=== PATIENT | female | born 1955 | race Caucasian/White ===

== ENCOUNTER 2017-10-25 08:00 | Outpatient (RCR) | payer BC, OTHER, SELFPAY ==
--- NOTE | 2017-09-25 09:26 | HMH.PTOPEV ---
Rehab Outpatient Evaluation Rehab OP Evaluation Start: 09/22/17 15:29 Freq: Status: Active Protocol: Document 09/22/17 15:00 FELICITA (Rec: 09/25/17 09:25 FELICITA [id number]) Electronically Signed By Harrison Oliver, PT 09/22/17 15:00 Outpatient Therapy Subjective History Subjective History Pt reports insidious onset acute L knee pain, with s/s starting on 09/09/17. Pt reports L knee 'popping', and pain, with referred pain from L lateral thigh to L lateral calf. Chief Complaint Pain Symptom Type Ache Sharp Dull Symptoms Relieved By Rest/Positioning Ice Symptoms Aggravated By Standing Physical Activity Walking Prior Functional Limitations Housework Standing Walking Stairs Current Functional Limitations Housework Standing Walking Stairs Level of pain today (0-10) 8 Pain scale - at its best (0-10) 8 Pain scale - at its worst (0-10) 10 Hip/Knee Eval Gait Observation General Gait Pattern Observation Antalgic Gait Assistive Device Assistive Devices None / NA Palpation Tenderness right Knee Palpation Finding Tenderness Knee Palpation Overall Comment globally 2-3/4 left Knee Palpation Finding Tenderness Knee Palpation Overall Comment 3/4 medial and lateral jt line , popiteal space MMT right Hip Flexion Strength Grade 4- Good- Hip Abduction Strength Grade 4- Good- Hip Adduction Strength Grade 4- Good- Hip Extension Strength Grade 4 Good Hip External Rotation Strength Grade 4 Good Hip Internal Rotation Strength Grade 4 Good Knee Extension Strength Grade 4 Good Knee Flexion Strength Grade 4 Good left Hip Flexion Strength Grade 4- Good- Hip Abduction Strength Grade 4- Good- Hip Adduction Strength Grade 4- Good- Hip Extension Strength Grade 4- Good- Hip External Rotation Strength Grade 3+ Fair+ Hip Internal Rotation Strength Grade 3+ Fair+ Knee Extension Strength Grade 4- Good- Knee Flexion Strength Grade 4- Good- ROM right Knee Extension Active Range of Motion ( 0 degrees) Knee Flexion Active Range of Motion ( 117 degrees) left
--- NOTE | 2017-10-13 08:16 | HMH.RHREAS ---
Rehab Reassessment Rehab OP Re-assessment Start: 10/13/17 08:01 Freq: Status: Active Protocol: Document 10/13/17 08:08 FELICITA (Rec: 10/13/17 08:15 FELICITA [id number]) Electronically Signed By Harrison Oliver, PT 10/13/17 08:08 Rehab Re-assessment Subjective Subjective Pt reports improved L knee pain @ 2/10 on VAS, and feels 75-80% better since I Eval. Objective Objective Notes MMT: L KNEE FLX 4+/5, L KNEE EXT 4+/5, L HIP FLX 4+/5, L HIP ABD,ADD,EXT 4-/5 TTP: L KNEE LAT JT LINE 2/4 ROM: L KNEE FLX 0-117 CIRCUM. L KNEE JT LINE 55CM Assessment Progress Assessment Progressing as Expected Assessment Notes PT WITH IMPROVED ROM, TTP, AND STRENGTH Patient goals met STG'S 03/10 LTG'S 09/11 Goals Not Met LTG'S 03/11 Plan Plan Pt to cont. w/ skilled PT to make further improvements with ROM, strength, TTP, and gait to allow for optimal function Frequency of Therapy 1-2x/wk Duration of therapy 3-4 wks Time and Billing Re-Eval Time 15 Re-Eval Billing Units 1 PHYSICIAN CERTIFICATION: I certify the specified therapy services for Lori Ramírez are required, authorized, and reviewed every 30 days.
== END 2017-10-25 08:05 | disposition home or self-care (01) ==
LOC: PT 08:00
PROVIDERS: Family Provider Internal Medicine Adolescent Medicine; PCP Surgery; Visit Provider Internal Medicine Adolescent Medicine
DX: M25.562 Pain in left knee (principal)
CPT/HCPCS: 97010; 97014; 97016; 97033; 97035; 97110; 97164; G0283

== ENCOUNTER → 2018-07-04 16:19 | Outpatient (CLI) | payer BC, OTHER, SELFPAY ==
--- NOTE | 2018-07-04 16:22 | XR_ITS ---
XR ankle RT min 3V HISTORY: Pain and swelling ITS.REASON: ACUTE RIGHT ANKLE PAIN ORDERING PHYSICIAN: Sae Gonzalez MD PATIENT AGE: 63 years Comparison: None FINDINGS: The ankle has an unremarkable appearance. No acute fracture or dislocation is evident. There is some thickening and undulation involving the proximal aspect of the wrist and fourth metatarsals suggesting old fractures. IMPRESSION: 1. Negative ankle. 2. Old fourth and fifth metatarsal fractures SPECT
== END ==
PROVIDERS: PCP Internal Medicine Adolescent Medicine; Visit Provider Internal Medicine Adolescent Medicine
DX: M25.571 Pain in right ankle and joints of right foot (principal)
CPT/HCPCS: 73610

== ENCOUNTER → 2018-08-14 08:15 | Outpatient (POV) | payer BC, OTHER, SELFPAY | PROVIDERS: Visit Provider Dermatology | DX: Z00.00 Encounter for general adult medical examination without abnormal findings (principal) ==

== ENCOUNTER → 2018-10-24 08:36 | Outpatient (CLI) | payer BC, OTHER, SELFPAY ==
--- NOTE | 2018-10-24 08:41 | MM_ITS ---
MM Dig screening mamm BI w/CAD CAD Screening COMPARISON: Digital mammograms with CAD 06/27/2016 and 07/24/2017 INDICATION: There is a history of breast cancer in patient's sister diagnosed after menopause. TECHNIQUE: Standard CC and MLO images were obtained. R2 CAD reviewed. FINDINGS: The breasts are composed primarily of fat with minimal scattered fibroglandular densities in each breast. There is a mole marker left breast. There is a stable asymmetric density just deep to and slightly above the nipple left breast. There is a stable nodular density low in the axilla right breast likely a low-lying node. There is stable small benign-appearing nodular density just deep to the nipple the right breast. There is no suspicious lesion and there are no suspicious microcalcifications. IMPRESSION: Fatty type breast parenchyma with no suspicious lesion seen BI-RADS Category: 2 Benign Finding(s) RECOMMENDED FOLLOW-UP: 1YR - 1 YEAR FOLLOW-UP (A letter has been sent to the patient regarding results of the study.)
== END ==
PROVIDERS: PCP Internal Medicine Adolescent Medicine; Visit Provider Internal Medicine Adolescent Medicine
DX: Z12.31 Encounter for screening mammogram for malignant neoplasm of breast (principal)
CPT/HCPCS: 77067

== ENCOUNTER → 2018-11-28 16:57 | Outpatient (CLI) | payer BC, OTHER, SELFPAY ==
--- NOTE | 2018-11-28 17:11 | XR_ITS ---
XR shoulder LT min 2V HISTORY: Left shoulder pain ITS.REASON: ROTATOR CUFF SYNDROME OF LT. SHOULDER ORDERING PHYSICIAN: Malorie Kirkpatrick PATIENT AGE: 63 years Comparison: None FINDINGS: No fracture or dislocation. No lytic or blastic change. There is normal mineralization. The joint spaces are well-preserved. No significant degenerative/arthritic changes. No erosive changes evident. There is a type II acromium with mild subacromial stenosis which may result in rotator cuff impingement. 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
== END ==
PROVIDERS: PCP Nurse Practitioner Family; Visit Provider Nurse Practitioner Family
DX: M75.102 Unspecified rotator cuff tear or rupture of left shoulder, not specified as traumatic (principal)
CPT/HCPCS: 73030

== ENCOUNTER 2019-01-07 07:00 | Outpatient (RCR) | payer BC, OTHER, SELFPAY ==
--- NOTE | 2018-12-03 12:26 | HMH.PTOPEV ---
PT Outpatient Evaluation Rehab PT Outpatient Evaluation Start: 12/03/18 08:15 Freq: Status: Active Protocol: Document 12/03/18 08:15 [email or web address] (Rec: 12/03/18 12:26 PDESEROUX [id number]) Electronically Signed By Erasto Yanes PT 12/03/18 08:15 Outpatient Therapy Subjective History Subjective History Pt. is a 63 year old female who presents to outpatient PT with complaints for sub-acute L shoulder pain of insidious onset on 2017. Pt. reports her Physician wants to start PT with the possibility of injections if her shoulder is no better. Pt. denies radiating(burning/tinglint) symptoms down to her L hand. Recent diagnostic imaging positive for L subacromial stenosis with minimal osteophyte formation noted along the inferior surface of the acromion. 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 Current medications include Tramadol, Gabapentin, Synthroid, and Glucosamine. PMH includes Cholecystectomy and a Hysterectomy. Chief Complaint Pain Symptom Type Ache Sharp Dull Symptoms Relieved By Rest/Positioning OTC Meds Symptoms Aggravated By Physical Activity Twisting Lifting Prior Functional Limitations None Current Functional Limitations Reaching Lifting Housework Dressing Desk Work/Reading Driving Sleeping Recreation Activity Symptom Description Intermittent Activity Dependent Level of pain today (0-10) 3 Pain scale - at its best (0-10) 0 Pain scale - at its worst (0-10) 7 Shoulder/Elbow Eval Shoulder Objective Measurements Palpation Tenderness tenderness shoulder exam standard left tenderness over the bicipital tendon left shoulder ex
== END 2019-01-30 10:49 | disposition home or self-care (01) ==
LOC: PT.CARL 07:00
PROVIDERS: Visit Provider Internal Medicine Adolescent Medicine
DX: M75.102 Unspecified rotator cuff tear or rupture of left shoulder, not specified as traumatic (principal)
CPT/HCPCS: 97010; 97014; 97033; 97110; 97163; G0283

== ENCOUNTER → 2019-11-04 08:00 | Outpatient (CLI) | payer BC, OTHER, SELFPAY ==
--- NOTE | 2019-11-04 08:07 | MM_ITS ---
PROCEDURE: MM DIG SCREENING MAMM BI W/CAD CLINICAL INDICATION: SCREENING There is a history of breast cancer in patient's sister diagnosed after menopause. 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 R2 CAD reviewed. FINDINGS: The breasts are composed primarily of fat with minimal scattered fibroglandular densities in the subareolar regions bilaterally. There is a stable tiny nodular density central portion right breast best appreciated on the walt views, Likely a micro cyst or small fibroadenoma. There is no suspicious lesion and no suspicious microcalcifications. IMPRESSION: Fatty type breast parenchyma with no suspicious lesions seen BI-RAD Category: 2 Benign Finding(s) FOLLOW-UP: 1YR 1 Year Follow-up (A letter has been sent to the patient regarding results of the study.) Dictated by: Dr. Beck Aguayo MD 11/06/2019 12:[address] Beck Aguayo MD in [place] 11/06/2019 12:18
== END ==
PROVIDERS: PCP Nurse Practitioner Family; Visit Provider Nurse Practitioner Family
DX: Z12.31 Encounter for screening mammogram for malignant neoplasm of breast (principal)
CPT/HCPCS: 77063; 77067

== ENCOUNTER → 2019-11-22 08:24 | Outpatient (CLI) | payer BC, OTHER, SELFPAY ==
[2019-11-22 08:50] LABS: Blood Urea Nitrogen 17 mg/dl (7-17); Estimated Glomerular Filt Rate 63 ml/min (>60); GFR (African American) 77 ML/MIN (>60)
--- NOTE | 2019-11-22 08:59 | CT_ITS ---
PROCEDURE: CT ABDOMEN PELVIS WO/W CON CLINICAL INDICATION: HEMATURIA, LT FLANK PAIN COMPARISON: No exams were available for comparison TECHNIQUE: IV Contrast: 75ML OPTIRAY 350 Oral Contrast none Axial images obtained with sagittal and coronal reformats. All CT scans at the facility use one or more dose reduction, viz: automated exposure control, ma/kV adjustment per patient size (including targeted exams where dose is matched to indication, i.e. head), or iterative reconstruction technique. FINDINGS: LOWER THORAX: No acute finding ABDOMEN & PELVIS: There are post cholecystectomy changes. The liver, spleen, adrenal glands, and pancreas have an unremarkable appearance. No renal or ureteral calculi. No hydronephrosis. No renal mass or perinephric fluid collection. The urinary bladder has an unremarkable appearance. No intestinal obstruction or free air. No evidence of appendicitis or diverticulitis. There is diverticulosis of the sigmoid colon. There is a 4 x 3 x 3 cm soft tissue density in the pelvis anterior to the coccyx and somewhat pointed toward the left. This is well-circumscribed and does not demonstrate contrast enhancement. There are post hysterectomy changes. Increased soft tissue density is present along the left lower abdominal wall anteriorly and could be postsurgical scarring. Degenerative changes are present in the lumbosacral spine IMPRESSION: 1. No renal or ureteral calculi or renal mass evident. 2. Soft tissue mass in the pelvis posteriorly in the pre coccygeal region. The density is somewhat greater than 1 would expect for a cystic fluid collection measuring near 20 Hounsfield units. Etiology is indeterminate and could be related to a post inflammatory collection or extension from a sacral meningocele versus tumor such as a schwannoma or enlarged stephen area from metastatic disease. Suggest MRI of the sacrum/coccyx without and with contrast for more thorough evaluation. Dictated by: Kei Pettit MD 11/23/2019 10:22 Electronically signed by Kei Pettit MD in [place] 11/23/2019 10:22
== END ==
PROVIDERS: PCP Nurse Practitioner Family; Visit Provider Nurse Practitioner Family
DX: R10.9 Unspecified abdominal pain (principal); R31.9 Hematuria, unspecified
CPT/HCPCS: 36415; 74178; 82565; 84520; Q9967

== ENCOUNTER → 2019-12-10 09:05 | Outpatient (CLI) | payer BC, OTHER, SELFPAY ==
--- NOTE | 2019-12-10 09:08 | MR_ITS ---
PROCEDURE: MR PELVIS WO/W CON CLINICAL INDICATION: SOFT TISSUE MASS Follow-up pelvic mass, presacral mass COMPARISON: CT ABDOMEN PELVIS WO/W CON from 11/22/2019 TECHNIQUE: Routine multiplanar multi echo sequences are performed without and with gadolinium enhancement. FINDINGS: There are post hysterectomy changes. There is a lobular 4 x 2 by 3.5 cm well-circumscribed presacral mass. This is isodense slightly hypointense on T1 and hyperintense on T2 with a small septation anteriorly. This lies anterior to the coccyx and posterior to the rectum. The lesion is slightly angulated toward the left anteriorly and is lying within the presacral fat centrally and on the left. This does not demonstrate contrast enhancement. No mural nodularity is evident. No other abnormalities are evident. IMPRESSION: Well-circumscribed cystic presacral cystic lesion as described above with at least 1 septation anteriorly without enhancement or mural nodularity. 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 Differential diagnosis would include other developmental or congenital cystic lesions such as a retro rectal neurenteric cyst, dermoid cyst, epidermoid cyst, anterior sacral meningocele, rectal duplication cyst. Follow-up is suggested. Suggest surgical consult as surgical excision is generally recommended for the tail gut duplication cyst due to malignant transformation potential. Dictated by: Kei Pettit MD 12/12/2019 09:41 Electronically signed by Kei Pettit MD in [place] 12/12/2019 09:41
[2019-12-10 09:34] LABS: Blood Urea Nitrogen 26 mg/dl (7-17); Estimated Glomerular Filt Rate 56 ml/min (>60); GFR (African American) 68 ML/MIN (>60)
== END ==
PROVIDERS: PCP Nurse Practitioner Family; Visit Provider Nurse Practitioner Family
DX: M79.89 Other specified soft tissue disorders (principal)
CPT/HCPCS: 36415; 72197; 82565; 84520; A9576

== ENCOUNTER → 2020-03-16 09:47 | Outpatient (CLI) | payer OTHER, SELFPAY ==
[2020-03-16 13:52] LABS: Chloride 97 mmol/L (98-107); Potassium 3.9 mmoL/L (3.5-5.1); Sodium 138 mmol/L (136-145)
[2020-03-16 13:55] LABS: Anion Gap 11.9 mEq/L (5-15); Blood Urea Nitrogen 21 mg/dl (7-17); Carbon Dioxide 33 mmol/L (22.0-30.0); Estimated Glomerular Filt Rate 73 ml/min (>60); GFR (African American) 88 ML/MIN (>60)
[2020-03-16 13:56] LABS: Calcium 9.7 mg/dl (8.4-10.2); Glucose 109 mg/dl (74-100)
== END ==
PROVIDERS: Visit Provider Nurse Practitioner Family
DX: E87.1 Hypo-osmolality and hyponatremia (principal)
CPT/HCPCS: 36415; 80048

== ENCOUNTER → 2020-04-06 14:30 | Outpatient (CLI) | payer OTHER, SELFPAY ==
[2020-04-06 15:37] LABS: Adenovirus,PCR Not Detected (NotDetected); Bordetella Pertussis Not Detected (NotDetected); Chlamydophila Pneumoniae, PCR Not Detected (NotDetected); Coronavirus 229E Not Detected (NotDetected); Coronavirus NL63 Not Detected (NotDetected); Coronavirus OC43 Not Detected (NotDetected); Coronovirus HKU1,PCR Not Detected (NotDetected); Human Metapneumovirus Not Detected (NotDetected); Influenza A, PCR Not Detected (NotDetected); Influenza AH1, 2009 Not Detected (NotDetected); Influenza AH1, PCR Not Detected (NotDetected); Influenza AH3,PCR Not Detected (NotDetected); Influenza B, PCR Not Detected (NotDetected); Mycoplasma Pneumoniae, PCR Not Detected (NotDetected); Parainfluenza 1, PCR Not Detected (NotDetected); Parainfluenza 2, PCR Not Detected (NotDetected); Parainfluenza 3, PCR Not Detected (NotDetected); Parainfluenza 4, PCR Not Detected (NotDetected); Respiratory Syncytial Virus Not Detected (NotDetected); Rhinovirus/Enterovirus Not Detected (NotDetected)
[2020-04-06 17:25] LABS: Coronavirus 19, PCR Detected (NotDetected)
== END ==
PROVIDERS: Internal Medicine Adolescent Medicine; PCP Internal Medicine Adolescent Medicine; Visit Provider Internal Medicine Adolescent Medicine
DX: U07.1 COVID-19 (principal)
CPT/HCPCS: 87581; 87633; 87798; U0003

== ENCOUNTER → 2020-06-01 10:33 | Outpatient (CLI) | payer OTHER, SELFPAY ==
[2020-06-01 13:27] LABS: Basophils % 0.5 % (0.1-2.0); Eosinophils # 0.2 K/mm3 (0.0-0.4); Eosinophils % 3.4 % (0.1-12.0); Hematocrit 37.1 % (37.0-47.0); Hemoglobin 11.2 g/dL (12.2-16.2); Lymphocytes # 1.5 K/mm3 (0.7-4.5); Lymphocytes % 23.9 % (10-50); Mean Corpuscular HGB Conc 30.3 g/dL (31.8-35.4); Mean Corpuscular Volume 85.8 fl (81-99); Mean Platelet Volume 8.4 fl (7.4-10.4); Monocytes # 0.3 K/mm3 (0.1-1.0); Monocytes % 5.1 % (1.7-9.3); Neutrophils # 4.1 K/mm3 (1.8-7.8); Neutrophils % 67.2 % (37.0-80.0); Platelet Count 284 K/mm3 (142-424); Red Blood Count 4.32 M/mm3 (4.20-5.40); Red Cell Distribution Width 14.5 % (11.5-17.5); White Blood Count 6.1 K/mm3 (4.8-10.8)
[2020-06-01 13:32] LABS: Chloride 102 mmol/L (98-107); Potassium 3.5 mmoL/L (3.5-5.1); Sodium 141 mmol/L (136-145)
[2020-06-01 13:35] LABS: Alanine Aminotransferase 17 U/L (12-78); Albumin Level 3.6 g/dl (3.5-5.0); Alkaline Phosphatase 144 U/L (38-126); Anion Gap 11.5 mEq/L (5-15); Aspartate Amino Transferase 35 U/L (14-36); Bilirubin,Total 0.6 mg/dl (0.2-1.3); Blood Urea Nitrogen 16 mg/dl (7-17); Calcium 9.4 mg/dl (8.4-10.2); Carbon Dioxide 31 mmol/L (22.0-30.0); Chol/HDL Ratio 2.8 (1-3.5); Cholesterol 155 mg/dl (140-200); Estimated Glomerular Filt Rate 85 ml/min (>60); GFR (African American) 102 ML/MIN (>60); Globulin 3.6 g/dL (1.3-3.2); Glucose 110 mg/dl (74-100); HDL Cholesterol 56 mg/dl (40-60); Total Protein,Serum 7.2 g/dl (6.3-8.2); Triglycerides 90 mg/dl (30-150); VLDL Cholesterol 18 mg/dL (0-40)
[2020-06-01 13:49] LABS: Direct LDL Cholesterol 77.03 mg/dL (100-129)
[2020-06-01 13:55] LABS: 25-OH Vitamin D, Total 52.2 ng/mL (30-100)
[2020-06-01 15:27] LABS: Vitamin B12 832 pg/mL (239-931)
[2020-06-02 13:04] LABS: Hemoglobin A1C 5.6 % (4.0-6.0)
== END ==
PROVIDERS: Internal Medicine Adolescent Medicine; Visit Provider Nurse Practitioner Family
DX: E78.5 Hyperlipidemia, unspecified (principal); E03.9 Hypothyroidism, unspecified; E53.8 Deficiency of other specified B group vitamins; E55.9 Vitamin D deficiency, unspecified; I10 Essential (primary) hypertension; R73.9 Hyperglycemia, unspecified
CPT/HCPCS: 36415; 80053; 80061; 82306; 82607; 83036; 84443; 85025

== ENCOUNTER → 2020-06-11 11:20 | Outpatient (CLI) | payer OTHER, SELFPAY ==
--- NOTE | 2020-06-11 11:23 | US_ITS ---
PROCEDURE: US THYROID CLINICAL INDICATION: THYROMEGALY POSS THYROID ENLARGED BI EXAM---MW COMPARISON: No exams were available for comparison FINDINGS: Right lobe: 0.8cm x 2.6cm x 1.3cm Left lobe: 1.0cm x 2.1cm x 1.5cm Isthmus: Unremarkable Additional findings: There is a 4 mm slightly hypoechoic nodule in the lower pole on the right IMPRESSION: 4 mm hypoechoic nodule in the lower pole on the right. Recommend six-month follow-up. Dictated by: Kei Pettit MD 06/14/2020 09:37 Kei Pettit MD in [place] 06/14/2020 09:37
== END ==
PROVIDERS: PCP Internal Medicine Adolescent Medicine; Visit Provider Nurse Practitioner Family
DX: E01.0 Iodine-deficiency related diffuse (endemic) goiter (principal)
CPT/HCPCS: 76536

== ENCOUNTER → 2020-10-13 15:33 | Outpatient (CLI) | payer OTHER, SELFPAY ==
--- NOTE | 2020-10-13 15:41 | XR_ITS ---
PROCEDURE: XR FOOT RT MIN 3V CLINICAL INDICATION: RT FOOT PAIN COMPARISON: No exams were available for comparison FINDINGS: There is a vague transverse lucency through the proximal shaft the 4th metatarsal suggesting a nondisplaced fracture. Cortical thickening is present involving the distal shaft of the 4th metatarsal may be due to an old injury. Other findings:None. IMPRESSION: Nondisplaced transverse fracture proximal shaft of the 4th metatarsal Dictated by: Kei Pettit MD 10/14/2020 11:47 Kei Pettit MD in [place] 10/14/2020 11:47
== END ==
PROVIDERS: PCP Internal Medicine Adolescent Medicine; Visit Provider Internal Medicine Adolescent Medicine
DX: M79.671 Pain in right foot (principal)
CPT/HCPCS: 73630

== ENCOUNTER → 2020-11-05 14:41 | Outpatient (CLI) | payer OTHER, SELFPAY ==
--- NOTE | 2020-11-05 14:49 | XR_ITS ---
PROCEDURE: XR FOOT WT BEARING RT 3V CLINICAL INDICATION: fracture Follow-up fracture COMPARISON: CR XR FOOT RT MIN 3V from 10/13/2020 FINDINGS: No fracture or dislocation. No lytic or blastic change. There is normal mineralization. Cortical thickening involves the distal shaft of the 4th metatarsal consistent with healing fracture not significantly changed. There is good alignment Other findings:None. IMPRESSION: Healed 4th metacarpal fracture otherwise negative Dictated by: Kei Pettit MD 11/05/2020 17:23 Kei Pettit MD in [place] 11/05/2020 17:23
== END ==
PROVIDERS: PCP Internal Medicine Adolescent Medicine; Visit Provider Podiatrist
DX: T14.8XXA Other injury of unspecified body region, initial encounter (principal); S92.344A Nondisplaced fracture of fourth metatarsal bone, right foot, initial encounter for closed fracture; R60.0 Localized edema
CPT/HCPCS: 73630

== ENCOUNTER → 2020-11-11 11:36 | Outpatient (CLI) | payer OTHER, SELFPAY ==
--- NOTE | 2020-11-11 11:40 | XR_ITS ---
PROCEDURE: XR FOOT WT BEARING RT 3V CLINICAL INDICATION: Patient thinks she may have reinjured the R foot Pain pain COMPARISON: CR XR FOOT RT MIN 3V from 10/13/2020 CR XR FOOT WT BEARING RT 3V from 11/05/2020 FINDINGS: Cortical thickening involves the proximal aspect of the 5th metatarsal consistent with healed fracture. There is also a healed fracture involving the distal shaft of the 4th metatarsal. No new acute fracture or dislocation is evident. The joint spaces are well-preserved. No significant degenerative/arthritic changes. No erosive changes evident. Other findings:None. IMPRESSION: Old healed fractures of the 4th and 5th metatarsals Dictated by: Kei Pettit MD 11/11/2020 16:58 Kei Pettit MD in [place] 11/11/2020 16:58
== END ==
PROVIDERS: PCP Internal Medicine Adolescent Medicine; Visit Provider Nurse Practitioner
DX: M79.671 Pain in right foot (principal); R60.0 Localized edema; S92.341A Displaced fracture of fourth metatarsal bone, right foot, initial encounter for closed fracture
CPT/HCPCS: 73630

== ENCOUNTER → 2020-12-30 13:47 | Outpatient (CLI) | payer OTHER, SELFPAY ==
--- NOTE | 2020-12-30 13:49 | MM_ITS ---
PROCEDURE INFORMATION: Exam: MG Screening 3D Mammography Exam date and time: 12/30/2020 1:49 PM Age: 65 years old Clinical indication: Encounter for screening mammogram for malignant neoplasm of breast . Family history of breast carcinoma. Patient does report that her left nipple has been itchy for 2 weeks. TECHNIQUE: Imaging protocol: Screening tomosynthesis and 2D mammography including computer-aided detection (CAD) when performed. COMPARISON: 1. MG MM DIG SCREENING MAMM BI W/CAD 11/04/2019 8:11 AM 2. MG [facility] MM Dig screening mamm BI w/CAD 10/24/2018 8:48 AM 3. MG [facility] DIG MAMM-SCREEN [place] W/CAD 07/24/2017 5:15 PM FINDINGS: MAMMOGRAPHY: Breast composition: There are scattered areas of fibroglandular density. Mass: No new suspicious masses. No definite mass seen in the left periareolar region to correlate with the patient's clinical symptoms. Architectural distortion: No suspicious distortion. Calcifications: No suspicious calcifications. Asymmetric density: None. Skin thickening: None. No definite abnormal skin thickening involving the left nipple/areola in the region of patient's clinical symptoms. Axillary adenopathy: None. IMPRESSION: No mammographic evidence of malignancy. Annual screening is recommended unless otherwise clinically indicated. Patient reports itchiness of the left nipple for 2 weeks. Clinical correlation is recommended for any visible skin changes or superficial mass involving the nipple/areolar region. If clinically warranted, diagnostic mammogram and ultrasound of the left breast may be helpful for further evaluation. ASSESSMENT: BI-RADS Category 2: Benign
== END ==
PROVIDERS: PCP Internal Medicine Adolescent Medicine; Visit Provider Internal Medicine Adolescent Medicine
DX: Z12.31 Encounter for screening mammogram for malignant neoplasm of breast (principal)
CPT/HCPCS: 77063; 77067

== ENCOUNTER → 2021-01-12 10:05 | Outpatient (POV) | payer OTHER, SELFPAY | PROVIDERS: Visit Provider Dermatology | DX: Z00.00 Encounter for general adult medical examination without abnormal findings (principal) ==

== ENCOUNTER → 2021-02-22 09:21 | Outpatient (CLI) | payer OTHER, SELFPAY ==
--- NOTE | 2021-02-22 09:46 | US_ITS ---
PROCEDURE: US THYROID CLINICAL INDICATION: THYROMEGALY COMPARISON: US US THYROID from 06/11/2020 FINDINGS: Right lobe: 3 x 0.7 x 1 cm Left lobe: 2.4 x 0.9 x 1.1 cm. Isthmus: Unremarkable Additional findings: In the lower pole on the right there is a 4 mm slightly hypoechoic nodule not significantly changed. No nodules are evident on the left IMPRESSION: The thyroid gland is normal in size with a stable slightly hypoechoic nodule in the lower pole on the right. Dictated by: Kei Pettit MD 02/22/2021 12:25 Kei Pettit MD in [place] 02/22/2021 12:25
[2021-02-22 10:24] LABS: Basophils # 0.1 K/mm3 (0-0.2); Basophils % 0.8 % (0.1-2.0); Eosinophils # 0.1 K/mm3 (0.0-0.4); Eosinophils % 1.9 % (0.1-12.0); Hemoglobin 12.8 g/dL (12.2-16.2); Lymphocytes # 1.9 K/mm3 (0.7-4.5); Lymphocytes % 29.1 % (10-50); Mean Corpuscular HGB Conc 33.6 g/dL (31.8-35.4); Mean Corpuscular Hemoglobin 27.3 pg (27.0-31.2); Mean Corpuscular Volume 81.3 fl (81-99); Mean Platelet Volume 7.2 fl (7.4-10.4); Monocytes # 0.3 K/mm3 (0.1-1.0); Monocytes % 4.2 % (1.7-9.3); Neutrophils # 4.2 K/mm3 (1.8-7.8); Platelet Count 280 K/mm3 (142-424); Red Blood Count 4.68 M/mm3 (4.20-5.40); Red Cell Distribution Width 14.3 % (11.5-17.5); White Blood Count 6.6 K/mm3 (4.8-10.8)
[2021-02-22 10:37] LABS: Hemoglobin A1C 5.3 % (4.0-6.0)
[2021-02-22 11:07] LABS: Alanine Aminotransferase 20 U/L (12-78); Albumin Level 4.1 g/dl (3.5-5.0); Albumin/Globulin Ratio 1.1 (1.1-1.8); Alkaline Phosphatase 164 U/L (38-126); Anion Gap 10.8 mEq/L (5-15); Aspartate Amino Transferase 35 U/L (14-36); Bilirubin,Total 0.7 mg/dl (0.2-1.3); Blood Urea Nitrogen 24 mg/dl (7-17); Calcium 9.4 mg/dl (8.4-10.2); Carbon Dioxide 36 mmol/L (22.0-30.0); Chloride 98 mmol/L (98-107); Estimated Glomerular Filt Rate 63 ml/min (>60); GFR (African American) 77 ML/MIN (>60); Globulin 3.7 g/dL (1.3-3.2); Glucose 94 mg/dl (74-100); Potassium 3.8 mmoL/L (3.5-5.1); Sodium 141 mmol/L (136-145); Total Protein,Serum 7.8 g/dl (6.3-8.2)
[2021-02-22 11:25] LABS: 25-OH Vitamin D, Total 39.8 ng/mL (30-100)
[2021-02-22 11:38] LABS: Thyroid Stimulating Hormone 0.17 uIU/mL (0.465-4.68)
[2021-02-22 11:56] LABS: Vitamin B12 869 pg/mL (239-931)
== END ==
PROVIDERS: PCP Internal Medicine Adolescent Medicine; Visit Provider Nurse Practitioner Family
DX: Z00.00 Encounter for general adult medical examination without abnormal findings (principal); E03.9 Hypothyroidism, unspecified; E53.8 Deficiency of other specified B group vitamins; E55.9 Vitamin D deficiency, unspecified; E01.0 Iodine-deficiency related diffuse (endemic) goiter; R73.9 Hyperglycemia, unspecified
CPT/HCPCS: 36415; 76536; 80053; 82306; 82607; 83036; 84443; 85025

== ENCOUNTER → 2021-04-23 20:29 | Outpatient (CLI) | payer OTHER, SELFPAY ==
[2021-04-23 20:44] LABS: Basophils # 0.1 K/mm3 (0-0.2); Basophils % 1.2 % (0.1-2.0); Eosinophils # 0.3 K/mm3 (0.0-0.4); Hematocrit 38.5 % (37.0-47.0); Hemoglobin 11.9 g/dL (12.2-16.2); Lymphocytes # 1.9 K/mm3 (0.7-4.5); Lymphocytes % 26.4 % (10-50); Mean Corpuscular HGB Conc 30.9 g/dL (31.8-35.4); Mean Corpuscular Hemoglobin 25.5 pg (27.0-31.2); Mean Corpuscular Volume 82.5 fl (81-99); Mean Platelet Volume 8.8 fl (7.4-10.4); Monocytes # 0.3 K/mm3 (0.1-1.0); Monocytes % 4.4 % (1.7-9.3); Neutrophils # 4.6 K/mm3 (1.8-7.8); Platelet Count 359 K/mm3 (142-424); Red Blood Count 4.67 M/mm3 (4.20-5.40); Red Cell Distribution Width 14.7 % (11.5-17.5); White Blood Count 7.2 K/mm3 (4.8-10.8)
[2021-04-23 21:00] LABS: Hemoglobin A1C 5.2 % (4.0-6.0)
[2021-04-23 21:02] LABS: Alanine Aminotransferase 21 U/L (12-78); Albumin/Globulin Ratio 1.1 (1.1-1.8); Alkaline Phosphatase 159 U/L (38-126); Anion Gap 12.9 mEq/L (5-15); Aspartate Amino Transferase 34 U/L (14-36); Bilirubin,Total 0.6 mg/dl (0.2-1.3); Blood Urea Nitrogen 16 mg/dl (7-17); Calcium 9.1 mg/dl (8.4-10.2); Carbon Dioxide 31 mmol/L (22.0-30.0); Chloride 102 mmol/L (98-107); Chol/HDL Ratio 2.3 (1-3.5); Cholesterol 183 mg/dl (140-200); Estimated Glomerular Filt Rate 63 ml/min (>60); GFR (African American) 76 ML/MIN (>60); Globulin 3.7 g/dL (1.3-3.2); Glucose 101 mg/dl (74-100); HDL Cholesterol 78 mg/dl (40-60); Potassium 3.9 mmoL/L (3.5-5.1); Sodium 142 mmol/L (136-145); Total Protein,Serum 7.7 g/dl (6.3-8.2); Triglycerides 73 mg/dl (30-150); VLDL Cholesterol 15 mg/dL (0-40)
[2021-04-23 21:14] LABS: Direct LDL Cholesterol 82.74 mg/dL (100-129)
[2021-04-23 21:34] LABS: Thyroid Stimulating Hormone 0.15 uIU/mL (0.465-4.68)
[2021-04-23 21:53] LABS: Vitamin B12 879 pg/mL (239-931)
== END ==
PROVIDERS: Visit Provider Nurse Practitioner Family
DX: Z00.00 Encounter for general adult medical examination without abnormal findings (principal); R73.9 Hyperglycemia, unspecified; E03.9 Hypothyroidism, unspecified; E53.8 Deficiency of other specified B group vitamins; H93.13 Tinnitus, bilateral
CPT/HCPCS: 80053; 80061; 82607; 83036; 84443; 85025

== ENCOUNTER → 2021-07-12 12:25 | Outpatient (CLI) | payer OTHER, SELFPAY ==
--- NOTE | 2021-07-12 12:31 | XR_ITS ---
PROCEDURE: XR FOOT LT MIN 3V CLINICAL INDICATION: LT FOOT PAIN COMPARISON: CR XR FOOT RT MIN 3V from 10/13/2020 CR XR FOOT WT BEARING RT 3V from 11/05/2020 CR XR FOOT WT BEARING RT 3V from 11/11/2020 FINDINGS: No fracture or dislocation. No lytic or blastic change. There is normal mineralization. There is pes planus. There is a small calcaneal spur. Osteoarthritic change 2nd MTP joint Other findings:None. IMPRESSION: Pes planus. Osteoarthritic change second MTP joint Dictated by: Kei Pettit MD 07/12/2021 13:01 Kei Pettit MD in [place] 07/12/2021 13:01
== END ==
PROVIDERS: PCP Internal Medicine Adolescent Medicine; Visit Provider Internal Medicine Adolescent Medicine
DX: M79.672 Pain in left foot (principal)
CPT/HCPCS: 73630

== ENCOUNTER → 2021-12-06 12:06 | Outpatient (CLI) | payer OTHER, SELFPAY ==
--- NOTE | 2021-12-06 12:29 | XR_ITS ---
FINAL REPORT CLINICAL HISTORY: LT FOOT PAIN,LT FOOT SWELLING FINDINGS: LEFT FOOT Three views of the left foot demonstrate no acute fracture or dislocation. There are mild degenerative changes. There is a plantar calcaneal spur. The soft tissues are unremarkable. IMPRESSION: No acute bony abnormality. Reviewed, Interpreted and Dictated by Jeff Phipps III, MD Transcribed by Taty Barraza Authenticated by Jeff Phipps III, MD on 12/06/2021 02:20:39 PM [facility]
[2021-12-06 12:38] LABS: Basophils # 0.1 K/mm3 (0-0.2); Basophils % 0.5 % (0.1-2.0); Eosinophils # 0.2 K/mm3 (0.0-0.4); Eosinophils % 1.9 % (0.1-12.0); Hematocrit 37.2 % (37.0-47.0); Hemoglobin 11.7 g/dL (12.2-16.2); Lymphocytes # 1.7 K/mm3 (0.7-4.5); Lymphocytes % 18.8 % (10-50); Mean Corpuscular HGB Conc 31.4 g/dL (31.8-35.4); Mean Corpuscular Hemoglobin 25.7 pg (27.0-31.2); Mean Corpuscular Volume 81.8 fl (81-99); Mean Platelet Volume 7.8 fl (7.4-10.4); Monocytes # 0.4 K/mm3 (0.1-1.0); Monocytes % 4.7 % (1.7-9.3); Neutrophils # 6.6 K/mm3 (1.8-7.8); Platelet Count 344 K/mm3 (142-424); Red Blood Count 4.55 M/mm3 (4.20-5.40); Red Cell Distribution Width 14.5 % (11.5-17.5); White Blood Count 8.9 K/mm3 (4.8-10.8)
[2021-12-06 12:45] LABS: Alanine Aminotransferase 20 U/L (12-78); Albumin Level 4.1 g/dl (3.5-5.0); Alkaline Phosphatase 163 U/L (38-126); Aspartate Amino Transferase 39 U/L (14-36); Bilirubin,Total 0.5 mg/dl (0.2-1.3); Blood Urea Nitrogen 18 mg/dl (7-17); Calcium 8.8 mg/dl (8.4-10.2); Carbon Dioxide 34 mmol/L (22.0-30.0); Chloride 99 mmol/L (98-107); Estimated Glomerular Filt Rate 72 ml/min (>60); GFR (African American) 87 ML/MIN (>60); Glucose 103 mg/dl (74-100); Sodium 137 mmol/L (136-145); Total Protein,Serum 8.1 g/dl (6.3-8.2); Uric Acid 7.9 mg/dl (2.5-6.2)
[2021-12-06 12:51] LABS: Hemoglobin A1C 5.4 % (4.0-6.0)
[2021-12-06 13:16] LABS: Thyroid Stimulating Hormone 1.11 uIU/mL (0.465-4.68)
[2021-12-06 13:33] LABS: 25-OH Vitamin D, Total 53.5 ng/mL (30-100)
[2021-12-06 13:35] LABS: Vitamin B12 892 pg/mL (239-931)
== END ==
PROVIDERS: PCP Nurse Practitioner Family; Visit Provider Nurse Practitioner Family
DX: M79.672 Pain in left foot (principal); M79.89 Other specified soft tissue disorders; E78.5 Hyperlipidemia, unspecified; E03.9 Hypothyroidism, unspecified; E53.8 Deficiency of other specified B group vitamins; E55.9 Vitamin D deficiency, unspecified; Z68.39 Body mass index [BMI] 39.0-39.9, adult
CPT/HCPCS: 36415; 73630; 80053; 82306; 82607; 83036; 84443; 84550; 85025

== ENCOUNTER → 2022-01-10 14:33 | Outpatient (CLI) | payer OTHER, SELFPAY ==
--- NOTE | 2022-01-10 14:37 | XR_ITS ---
FINAL REPORT CLINICAL HISTORY: RIGHT AND LEFT ANTERIOR KNEE PAIN COMPARISON: February 08, 2016 FINDINGS: Three views of the right knee reveal no evidence of fracture or dislocation. Mild and moderate degenerative changes are greatest in the patellofemoral joint space. The patellofemoral degenerative changes have progressed since the prior exam. There is no evidence of joint effusion. No localized soft tissue abnormality is identified. IMPRESSION: Mild and moderate degenerative changes, progressed in the patellofemoral compartment since the prior. Reviewed, Interpreted and Dictated by Jeff Phipps III, MD Transcribed by Kenroy Bishop Authenticated by Jeff Phipps III, MD on 01/10/2022 04:36:47 PM [facility]
--- NOTE | 2022-01-10 14:37 | XR_ITS ---
FINAL REPORT CLINICAL HISTORY: . FINDINGS: Three views of the left knee reveal no evidence of fracture or dislocation. The bony alignment is normal. There are mild and moderate degenerative changes greatest in the lateral compartment and patellofemoral joint space. There is no evidence of joint effusion. No localized soft tissue abnormality is seen. IMPRESSION: Mild and moderate degenerative changes. Reviewed, Interpreted and Dictated by Jeff Phipps III, MD Transcribed by Kenroy Bishop Authenticated by Jeff Phipps III, MD on 01/10/2022 04:37:14 PM [facility]
== END ==
PROVIDERS: PCP Internal Medicine Adolescent Medicine; Visit Provider Nurse Practitioner Family
DX: M25.562 Pain in left knee (principal); M25.561 Pain in right knee
CPT/HCPCS: 73562

== ENCOUNTER → 2022-02-18 10:26 | Outpatient (CLI) | payer OTHER, SELFPAY ==
--- NOTE | 2022-02-18 10:31 | MR_ITS ---
FINAL REPORT CLINICAL HISTORY: ACUTE PAIN OF LEFT KNEE, SWELLING FALL 01-01-22. LATERAL KNEE PAIN AND SWELLING FINDINGS: Multiplanar MR imaging of the right knee was performed without contrast. There is a tear of the posterior horn of the medial meniscus. The lateral meniscus is intact. The anterior and posterior cruciate ligaments are intact. The medial collateral ligament and lateral ligamentous complex are intact. There are multiple foci of patellar tendinitis. The quadriceps tendon is intact. There is no evidence of fracture. There is severe patellofemoral chondromalacia with multiple osteochondral lesions. A small joint effusion is seen. The musculature is intact. No soft tissue mass or cyst is identified. IMPRESSION: Tear of the posterior horn of the medial meniscus. 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 Patellar tendinitis. Small joint effusion. Reviewed, Interpreted and Dictated by Jeff Phipps III, MD Transcribed by Kenroy Bishop Authenticated and [facility]
== END ==
PROVIDERS: PCP Nurse Practitioner Family; Visit Provider Nurse Practitioner Family
DX: M25.562 Pain in left knee (principal); M25.462 Effusion, left knee
CPT/HCPCS: 73721

== ENCOUNTER → 2022-02-28 10:52 | Outpatient (CLI) | payer OTHER, SELFPAY ==
--- NOTE | 2022-02-28 10:53 | MM_ITS ---
PROCEDURE INFORMATION: Exam: MG Bilateral Screening 3D Mammography Exam date and time: 02/28/2022 10:59 AM Age: 66 years old Clinical indication: Screening examination her sister had breast cancer at age 62. TECHNIQUE: Imaging protocol: Bilateral Screening tomosynthesis and 2D mammography including computer-aided detection (CAD) when performed. COMPARISON: 1. MG MM DIG SCREENING MAMM BI W/CAD 12/30/2020 2:04 PM 2. MG MM DIG SCREENING MAMM BI W/CAD 11/04/2019 8:11 AM 3. MG [facility] MM Dig screening mamm BI w/CAD 10/24/2018 8:48 AM 4. MG [facility] DIG MAMM-SCREEN [place] W/CAD 07/24/2017 5:15 PM FINDINGS: MAMMOGRAPHY: Breast composition: There are scattered areas of fibroglandular density. Mass: No suspicious mass. Architectural distortion: None. Calcifications: No suspicious calcifications. Asymmetric density: No developing asymmetry. Skin thickening: None. Axillary adenopathy: None. IMPRESSION: No mammographic evidence of malignancy. Annual screening is recommended unless otherwise clinically indicated. ASSESSMENT: BI-RADS Category 1: Negative
== END ==
PROVIDERS: PCP Nurse Practitioner Family; Visit Provider Nurse Practitioner Family
DX: Z12.31 Encounter for screening mammogram for malignant neoplasm of breast (principal)
CPT/HCPCS: 77063; 77067

== ENCOUNTER 2022-04-20 08:00 | Outpatient (RCR) | payer MEDICARE, OTHER, SELFPAY ==
--- NOTE | 2022-02-17 10:04 | HMH.PTOPEV ---
PT Outpatient Evaluation Rehab PT Outpatient Evaluation Start: 02/17/22 08:55 Freq: Status: Active Protocol: Document 02/17/22 08:55 OREN (Rec: 02/17/22 10:04 [email or web address] [id number]) Electronically Signed By Erasto Yanes, ISAC 02/17/22 08:55 Outpatient Therapy Subjective History Subjective History Pt. is a 66 year old female who presents to [facility] Outpatient Physical Therapy Services in [place] for the initial evaluation this date( 02/17/22) w/ c/o subacute and constant BLE knee(L>R) P!, edema, and stiffnes of traumatic onset after a fall 4 weeks ago. Pt. reports slipping on a ketchup packet at [facility] and falling onto both of her knees. Recent diagnostic imaging( radiographs LLE knee) positive for OA per pt. report. Pt. reports having an MRI of her LLE knee tomorrow(02/18/22). Pt. also reports having 2 steroid injections that gave her symptom relief for a couple days. Pt. reports having deficits and symptoms worsening w/ ambulation, negotiating stairs, and prolonged sitting. Pt. reports having some symptom relief w/ elevating legs, ice, and heat . Current medications include Tylenol, Gabapentin, and Tramadol. PMH includes Hypertension, history of a irregular heart rhythm, Cholecystectomy, Hysterectomy, and S/P sacral cystectomy. Pt . denies history of cancer( self), however, reports family history of breast cancer. Pt. denies pacemaker, latex/ medicational/adhesive tape allergy, denies diabetes. Chief Complaint Pain,Stiff,Swelling,Gives out/ Unstable,Weakness Symptom Type Ache,Sharp,Dull,Other Symptoms Relieved By Rest/Positioning,Heat,Ice,OTC
== END 2022-05-05 16:30 | disposition home or self-care (01) ==
LOC: PT.CARL 08:00
PROVIDERS: Visit Provider Nurse Practitioner Family
DX: M25.562 Pain in left knee (principal)
CPT/HCPCS: 97010; 97014; 97110; 97163; 97164; 97530; G0283

== ENCOUNTER → 2022-12-05 12:50 | Outpatient (CLI) | payer MEDICARE, OTHER, SELFPAY ==
--- NOTE | 2022-12-05 12:50 | US_ITS ---
FINAL REPORT CLINICAL HISTORY: Thyroid nodule FINDINGS: THYROID ULTRASOUND Thyroid gland is normal size. The parenchyma shows normal echogenicity. There is a 5 x 4 x 2 mm hypoechoic TI-RADS 4 nodule in the right lobe of the thyroid. IMPRESSION: Sub cm TI-RADS 4 nodule in the right lobe of the thyroid. No follow-up required. Reviewed, Interpreted and Dictated by Ga Canales MD Transcribed by Kenroy Bishop Authenticated and [facility]
== END ==
PROVIDERS: PCP Nurse Practitioner Family; Visit Provider Nurse Practitioner Family
DX: E04.1 Nontoxic single thyroid nodule (principal)
CPT/HCPCS: 76536

== ENCOUNTER 2023-10-17 11:00 | Outpatient (RCR) | payer MEDICARE, OTHER, SELFPAY | END 2023-10-17 12:00 | disposition home or self-care (01) | LOC: PT 11:00 | PROVIDERS: PCP Nurse Practitioner Family; Visit Provider Orthopaedic Surgery | DX: M17.11 Unilateral primary osteoarthritis, right knee (principal); Z96.651 Presence of right artificial knee joint | CPT/HCPCS: 97010; 97014; 97110; 97116; 97140; 97163; 97164; 97530; G0283 ==

== ENCOUNTER 2024-07-05 08:13 | Outpatient (CLI) | payer MEDICARE, OTHER, SELFPAY ==
--- NOTE | 2024-07-05 08:15 | MM_ITS ---
PROCEDURE INFORMATION: Exam: MG Bilateral Screening 3D Mammography Exam date and time: 07/05/2024 7:59 AM Age: 69 years old Clinical indication: Screening examination. Her sister had breast cancer at age 62. TECHNIQUE: Imaging protocol: Bilateral Screening tomosynthesis and 2D mammography including computer-aided detection (CAD) when performed. COMPARISON: 1. MG MM DIG SCREENING MAMM BI W/CAD 02/28/2022 10:59 AM 2. MG MM DIG SCREENING MAMM BI W/CAD 12/30/2020 2:04 PM 3. MG MM DIG SCREENING MAMM BI W/CAD 11/04/2019 8:11 AM 4. MG SCBI MM Dig screening mamm BI w/CAD 10/24/2018 8:48 AM FINDINGS: MAMMOGRAPHY: Breast composition: There are scattered areas of fibroglandular density. Mass: No suspicious mass. Architectural distortion: None. Calcifications: No suspicious calcifications. Asymmetric density: None. Skin thickening: None. Axillary adenopathy: None. IMPRESSION: No mammographic evidence of malignancy. Annual screening is recommended unless otherwise clinically indicated. ASSESSMENT: BI-RADS Category 1: Negative.
== END 2024-07-05 23:59 | disposition home or self-care (01) ==
LOC: RAD 08:13
PROVIDERS: PCP Nurse Practitioner Family; Visit Provider Internal Medicine Adolescent Medicine
DX: Z12.31 Encounter for screening mammogram for malignant neoplasm of breast (principal)
CPT/HCPCS: 77063; 77067

== ENCOUNTER 2024-10-31 09:00 | Outpatient (RCR) | payer MEDICARE, OTHER, SELFPAY ==
--- NOTE | 2024-10-15 11:20 | HMH.PTOPEV ---
PT Outpatient Evaluation Rehab PT Outpatient Evaluation Start: 10/15/24 10:06 Freq: Status: Active Protocol: Document 10/15/24 10:06 HEMANTHSERMITA (Rec: 10/15/24 11:20 PDESEROUX [id number]) E-signed By Erasto Yanes, PT Outpatient Therapy Subjective History Subjective History Pt. is a 69 year old female who presents to [facility] Outpatient Physical Therapy Services in [place] for the outpatient initial evaluation this date( 10/15/24) w/ c/o acute on chronic and constant RUE shldr . P!, stiffness, and weakness w/ intermittent RUE toothache P! that will refer inferiorly to RUE wrist of insidious onset since June 2024 that has progressively been getting worse. Pt. reports, my elbow will ache too. Pt. c/o having difficulty reaching overhead especially with weighted objects including a nursing department chairperson secondary to symptomatic P! provocation. Pt. also c/o picking up her purse secondary to P!. Pt. reports she is unable to lay on her right side to sleep without waking up d/t P!. Pt. reports symptoms worsened after taking her round of prescribed medication for shingles. Pt. denies having any diagnostic imaging nor injections for current complaint. Pt. RTMD in 3 months. Current medications include Losartan, Baby Aspirin, Gabapentin, Fluid Pill, Omeprazole, Zyrtec, and Angier. PMH includes S/P RLE TKA, Gout, Hypertension, Anemia, Cholecystectomy, Hysterectomy, S/P tailbone cystectomy. New diagnosis of cancer in past 12 No months? Chief Complaint Pain,Stiff,Clicks,Swelling, Weakness Symptom Type Ache,Throb,Sharp,Dull,Shooting Symptoms Relieved By Rest/Positioning,Ice,Brace/ Support,Prescription Meds Symptoms Aggravated By Standing,Physical Activity, Twisting,Lifting Prior Functional Limitations None Current Functional Limitations Reaching,Lifting,Housework, Dressing,Driving,Sleeping, Recreation Activity Symptom Description Constant but Variable,Activity Dependent Level of pain today (0-10) 2 Pain scale - at its best (0-10) 1 Pain scale - at its worst (0-10) 6 Shoulder/Elbow Eval Shoulder Objective Measurements Palpation Tenderness tenderness shoulder exam standard right tenderness over the bicipital tendon right shoulder exam standard tenderness over the SA bursa shoulder right exam standard Shoulder Palpation Findings Tenderness Shoulder Palpation Overall Comment grade 4 +TTP swelling shoulder exam standard right Posture Shoulder Posture Sitting Position (R) Rounded Shoulder Posture Standing Position (R) Rounded Scapula Posture Sitting Position (R) Protracted,(R) Elevated Scapular Posture Standing Position (R) Protracted,(R) Elevated Flexibilty Deficits Latissmus Dorsi Muscle Length (R) Severe Tightness Pectoralis Minor Muscle Length (R) Severe Tightness Pectoralis Major Muscle Length (R) Severe Tightness Shoulder External Rotators Muscle Length (R) Severe Tightness Shoulder Internal Rotators Muscle Length (R) Severe Tightness Supraspinatus Muscle Length (R) Severe Tightness Teres Major Muscle Length (R) Severe Tightness Upper Trapezius Muscle Length (R) Severe Tightness Levaetor Scapulae Muscle Length (R) Severe Tightness Shoulder ROM Right Shoulder ROM Limitations Soft Tissue Tightness,Muscle Weakness,Muscle Tone,Pain Shoulder Abduction Active Range of 63 Motion (degrees) Shoulder Abduction Passive Range of 89 Motion (degrees) Shoulder Flexion Active Range of Motion 54 (degrees) Query Text: Shoulder Flexion Passive Range of Motion 78 (degrees) Shoulder External Rotation Active Range 33 of Motion (degrees) Shoulder External Rotation Passive Range 44 of Motion (degrees) Shoulder Internal Rotation Active Range 41 of Motion (degrees) Shoulder Internal Rotation Passive Range 58 of Motion (degrees) Shoulder Extension Active Range of 54 Motion (degrees) Shoulder Extension Passive Range of 57 Motion (degrees) pain with active ROM shoulder exam right standard pain with passive ROM shoulder exam right standard decreased ROM shoulder exam standard right Shoulder MMT Shoulder Abduction Strength Grade 3 Fair Shoulder Extension Strength Grade 4- Good- Shoulder Flexion Strength Grade 3 Fair Shoulder External Rotation Strength 3+ Fair+ Grade Shoulder Internal Rotation Strength 4- Good- Grade Supraspinatus Strength Grade 3 Fair Shoulder Strength Patient Testing Sitting Position Shoulder Muscle Tone Shoulder Flexor Muscle Tone Description Severe Hypertonicity Shoulder Extensors Muscle Tone Severe Hypertonicity Description Shoulder Lateral Rotator Muscle Tone Severe Hypertonicity Description Shoulder Special Tests impingement sign present shoulder exam right standard Shoulder Drop Arm Test Negative Right Shoulder Cross-Over Impingement Test Positive Right Shoulder Empty Can (Supraspinatus) Test Positive Right Shoulder Mandujano-Get Impingement Positive Right Test Shoulder Speed's Sign Test Positive Right Elbow Objective Measurements Tendon Reflex Test triceps (L) PM 2+ Brachioradialis (L) PM 2+ biceps (L) ED 2+ triceps (R) PM 2+ Brachioradialis (R) PM 2+ biceps (R) ED 2+ Accessory Movements Right Shoulder Girdle Accessory Movements that Glenohumeral [place], Elicit Symptoms Glenohumeral [place]r [place] Outpatient Therapy Assessment Impairments Problems/Impairmments Palpation Tenderness,Impaired Range of Motion,Impaired Strength,Impaired Driving, Impaired Lifting,Impaired Dressing,Impaired Shower/ Bathing,Impaired Household Care,Impaired Work Activities, Impaired Desk/Computer Activities,Subjective C/O Pain ,Impaired Self Care/Self Management Prognosis Rehab Potential Good Comment w/ HEP compliancy Clinical Impression Consistent with Diagnosis Yes Consistent with RUE shldr. rotator cuff syndrome Additional details: RUE shldr. SA impingement syndrome Short Term Goals Number of Weeks 2 Decreased Palpation Tenderness Yes: grade 1-2 +TTP Decrease Subjective C/O Pain Yes: worse:01/11 Patient to be Ind w/ HEP Yes [facility] Goals Number of Weeks 4-6 Decreased Palpation Tenderness Yes: grade 1 +TTP Increase Range of Motion Yes: RUE shldr. A/PROM WFL grossly Increase Strength Yes: 4+ to 5/ RUE shldr. MMT scores grossly Increase Ability to Drive/Ride in Car Yes: Pt. will be able to operate steering wheel w/ RUE w/o difficulty Restore Ability to Lift Objects to Yes: Pt. will be able to pick Shoulder Level up her purse using the RUE w/o difficulty Restore Ability to Lift Objects Overhead Yes: Pt. will be able to blow dry her hair using RUE w/o difficulty Improve Ability to Dress Self Yes: IND. w/o difficulty Improve Ability to Shower/Bathe Self Yes: IND. w/o difficulty Improve Ability For Household Care Yes: Pt. 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 will be able to record files and answer phone w/ RUE w/o difficulty Improve Quick Dash Score Yes Decrease Subjective C/O Pain Yes: worse:-10/14 Patient to be Ind w/ Advanced HEP Yes Outpatient Therapy Plan of Care Treatment Plan May Include Therapeutic Exercise Including Home Yes Exercise Program Manual Therapy Techniques Yes Neuromuscular Re-education Yes Therapeutic Activities to Return to Yes Previous Functional/Work Level ADL/Self Care Education Yes Dry Needling Yes Thermal Modalities Yes Electrical Stimulation Yes Ultrasound/Phonophoresis Yes Iontophoresis Yes Vasopneumatic Compression Pump Yes Massage Yes Eval/Re-Eval Yes Frequency Times per week 2 Duration Number of Weeks 4-6 Addendums This patient is a candidate for social No or vocational rehab? Patient/Guardian verbally acknowledges Yes understanding of treatment program and consents to further treatment? Patient/Guardian verbally acknowledges Yes understanding of diagnosis, prognosis and goals for treatment? Eval Complexity PT Charges 73685 - Moderate Complexity PHYSICIAN CERTIFICATION: I certify the specified therapy services for Lori Ramírez are required, authorized, and reviewed every 30 days.
== END 2024-10-31 23:59 | disposition home or self-care (01) ==
LOC: PT 09:00
PROVIDERS: Visit Provider Internal Medicine Adolescent Medicine
DX: M75.41 Impingement syndrome of right shoulder (principal); M75.101 Unspecified rotator cuff tear or rupture of right shoulder, not specified as traumatic
CPT/HCPCS: 97010; 97014; 97110; 97163; 97530; G0283

== ENCOUNTER 2024-11-28 09:00 | Outpatient (RCR) | payer MEDICARE, OTHER, SELFPAY | END 2024-11-28 23:59 | disposition home or self-care (01) | LOC: PT 09:00 | PROVIDERS: Visit Provider Internal Medicine Adolescent Medicine | DX: M75.101 Unspecified rotator cuff tear or rupture of right shoulder, not specified as traumatic (principal) | CPT/HCPCS: 20560; 97014; 97110; 97530; G0283 ==

== ENCOUNTER 2024-12-03 08:56 | Outpatient (RCR) | payer MEDICARE, OTHER, SELFPAY | END 2024-12-10 17:55 | disposition home or self-care (01) | LOC: PT 08:56 | PROVIDERS: Visit Provider Internal Medicine Adolescent Medicine | DX: M75.101 Unspecified rotator cuff tear or rupture of right shoulder, not specified as traumatic (principal) | CPT/HCPCS: 97110 ==

== ENCOUNTER 2025-02-18 07:40 | Outpatient (CLI) | payer MEDICARE, OTHER, SELFPAY ==
--- NOTE | 2025-02-18 | CA_ITS ---
APPROVED REPORT Exam: Pharmacologic Technologist: Shital Blackburn Ht: 5 ft 8 in Wt: 270 lbs BSA: 2.32 m2 HR: 64 bpm BP: 184/70 mmHg Stress Test Details Test: Lexiscan HR Resting HR: 64 bpm Max Heart Rate (APMHR): 153.778705 bpm Max HR Achieved: 78 bpm Target HR (85% APMHR): 130.086154 bpm % of APMHR: 50.98 Recovery HR: 77 bpm BP Resting BP: 184.0/70.0 mmHg Max BP: 184.0/70.0 mmHg Recovery BP: 157.0/72.0 mmHg ECG Resting ECG: Normal sinus rhythm Stress ECG Conclusion Symptoms: - Arrhythmias/Ectopy: PVC ST-T Changes: Less than [address] depression. Conclusion: EKG unremarkable due to Lexiscan infusion. Electronically signed by : Shayna Jackson MD 02/18/2025 13:15:04
--- OUTSIDE RECORDS SUMMARY | 2025-02-18 07:43 | XMS_ITS | Referral Summary ---
Author Organization [facility] In [facility]atives Address [address] [place] [address] Care Team Providers Care Pocket Cutter Name Role Phone Unavailable Primary Care Provider Unavailabl e Social History Tobacco Use Types Packs/Day Years Used Date Smoking Tobacco: Never Assessed Interpersonal Safety Answer Date Record ed Family or friends hurt you Not on file 09/15 Family or friends insult you Not on file 08/2024 Family or friends threaten you Not on file 0 09/15/2023 Family or friends scream or curse at you Not on file 09/15/2023 Housing Stability Answer Date Recorded Living situation today Not on file Living situation problems Not on file 2023 Food Insecurity Answer Date Recorded Food run out past 12 months Not on file 09/04 Food did not last past 12 months Not on file 09/15/2023 Employment Answer Date Recorded Help finding and keeping a job Not on file 0 09/15/2023 Family and Community Support Answer Osman e Recorded Help with Day to Day Activities Not on file 09/15/2023 Feeling Lonely or Isolated Not on file 09/15 Educational Attainment Answer Date Felix rded Speak language other than Bhutanese at home Not on file 09/15/2023 Want help with school or training Not on file 09/15/2023 Depression Answer Date Recorded PHQ-2 Risk Not on file 09/15/2023 Disabilities Answer Date Recorded Difficulty concentrating Not on file 024 Difficulty doing errands alone Not on file 0 09/15/2023 Substance Use Answer Date Recorded Used prescription meds for non-medical reasons N ot on file 09/15/2023 Used illegal drugs past 12 months Not on file 09/15/2023 Comments Unknown Sex and Gender Information Value Date Recorded Sex Assigned at Not on file Legal Sex Female 1:05 PM CDT Gender Identity Not on file Sexual Orientation Not on file Plan of Treatment Not on file
--- OUTSIDE RECORDS SUMMARY | 2025-02-18 07:43 | XMS_ITS | Clinical Summary ---
Author Organization [facility] In [facility] Address [address] [place] [address] Care Team Providers Care Septic Tank Setter Name Role Phone Unavailable Primary Care Provider [...] Date Felix rded Speak language other than Croatian at home Not on file 09/15/2023 Want [...] Orientation Not on file Plan of Treatment Health Maintenance Due Date Last Done Comments CT Colonography 1957 Colonoscopy 1957 Colorectal Cancer Screening 1957 DXA SCAN 1957 FOBT/FIT 1957 Fit-DNA (Cologuard) 1957 Sigmoidoscopy 1957 Depression Screening (12+) 1969 Tobacco Cessation Counseling and Screening (12+) 1969 Hepatitis C Screening 1975 DTAP/TDAP/TD VACCINES (1 - Tdap) 1976 Pneumococcal 50+ years (1 of 1 - PCV) 2007 Breast Cancer Screening 06/03/2016 06/03/2014 COVID-19 VACCINE (2 - season) 05/05/202407/2021 Falls Risk Screening 09/04/2024 Influenza Vaccine (Season Ended) 2025 Respiratory Syncytial Virus (RSV) Adult or (1 - 1-dose 75+ series) 2032 Shingles Vaccine (Zoster) Completed 07/09/2018, 08/2018
--- NOTE | 2025-02-18 07:44 | NM_ITS ---
APPROVED REPORT Exam: Nuclear Stress Test Indication: Chest pain, SOB, HTN, Family history Patient Location: Outpatient Stress Tech: Shital Blackburn NM Tech:Comfort Cardoso ARRT, RT (R)(N) Ht: 5 ft 8 in Wt: 270 lbs Bra Size: 44DD HR: 61 bpm BP: 184/70 mmHg BSA: 2.32 m2 TID: 1.03 BMI: 41.0 History: Chest pain, SOB, HTN, Family history Procedure: Patient received 0.4 mg of intravenous Lexiscan, resting heart rate 61 bpm, resting blood pressure 184/70 mmHg, with Lexiscan maximum heart rate achieved was 101 bpm which is % of the maximum predicted heart rate and blood pressure was 180/66 mmHg. With Lexiscan, patient denied any complaint of chest pain. Cardiac Stress and Resting SPECT Images: Cardiac Stress and Resting SPECT images were obtained using technetium 99m Myoview 32.3 mCi stress and 10.55 mCi at rest. Resting and stress imaging in supine and prone positions demonstrate no evidence of fixed or reversible perfusion defects. Gated imaging demonstrates normal global and regional LV systolic function. LVEF is calculated at 60%. Conclusion: No evidence of fixed or reversible perfusion defects. Gated imaging demonstrates normal global and regional LV systolic function. LVEF is calculated at 60%. Electronically signed by : Shayna Jackson MD 02/18/2025 13:14:45
[2025-02-18] MEDS: REGADENOSON 0.4MG/5ML SYRINGE 0.4 MG IV (09:17)
[2025-02-18] MEDS: SODIUM CHLORIDE 0.9% 10ML SYR (RAD ONLY) 10 ML IV ×2 (09:17→09:18)
[2025-02-18] MEDS: ISOTOPE MYOVIEW (PER STUDY) 1 DOSE IV (09:18)
== END 2025-02-18 23:59 | disposition home or self-care (01) ==
LOC: RAD 07:42
PROVIDERS: PCP Internal Medicine Adolescent Medicine; Visit Provider Internal Medicine Adolescent Medicine
DX: I49.3 Ventricular premature depolarization (principal); I10 Essential (primary) hypertension
CPT/HCPCS: 78452; 93017; 93018; A9502; J2785

== ENCOUNTER 2025-02-19 08:10 | Outpatient (CLI) | payer MEDICARE, OTHER, SELFPAY ==
--- OUTSIDE RECORDS SUMMARY | 2025-02-19 08:14 | XMS_ITS | Referral Summary ---
Author Organization [facility] Address [address] [place] [address] Care Team Providers Care Glost Kiln Operator Name Role Phone Unavailable Primary Care Provider [...] Date Felix rded Speak language other than Tuvaluan at home Not on file 09/15/2023 Want [...]
--- OUTSIDE RECORDS SUMMARY | 2025-02-19 08:14 | XMS_ITS | Clinical Summary ---
Author Organization [facility] Address [address] [place] [address] Care Team Providers Care Mixer Blender Name Role Phone Unavailable Primary Care Provider [...] Date Felix rded Speak language other than Montenegrin at home Not on file 09/15/2023 Want [...]
[2025-02-19 08:45] VITALS: PULSE 60; PULSE 66
[2025-02-19] MEDS: ALBUTEROL 0.083% 2.5 MG/3 ML NEB IH (08:45)
== END 2025-02-19 23:59 | disposition home or self-care (01) ==
LOC: RT 08:11
PROVIDERS: PCP Nurse Practitioner Family; Visit Provider Internal Medicine Adolescent Medicine
DX: R07.9 Chest pain, unspecified (principal); R06.09 Other forms of dyspnea
CPT/HCPCS: 94010; 94640; 94727; 94729

== ENCOUNTER 2025-03-10 15:00 | Outpatient (CLI) | payer MEDICARE, OTHER, SELFPAY ==
--- NOTE | 2025-03-10 15:01 | CT_ITS ---
FINAL REPORT TECHNIQUE: Axial images were obtained through the chest without contrast. This study was performed with techniques to keep radiation doses as low as reasonably achievable (ALARA). Individualized dose reduction techniques using automated exposure control or adjustment of mA and/or kV according to the patient's size were employed. CLINICAL HISTORY: DYSPNEA ON EXERTION/WHEEZING COMPARISON: None FINDINGS: CT CHEST WITHOUT CONTRAST: There is 10 degrees of dextroscoliosis of the upper and mid thoracic spine. No mediastinal mass is identified. There are prevascular lymph nodes which measure up to 1.2 cm in size. Minimal scarring is present in the right apex and the medial right lung base. No infiltrates or effusions are identified. No evidence of bronchiectasis is noted. IMPRESSION: Nonspecific prevascular lymph nodes are identified measuring up to 12 mm in size. No infiltrates, effusions, or regions of bronchiectasis are identified. Reviewed, Interpreted and Dictated by Ga Canales MD Transcribed by Esther Galloway Authenticated and [facility]
--- OUTSIDE RECORDS SUMMARY | 2025-03-10 15:02 | XMS_ITS | Referral Summary ---
Author Organization [employer] ([place], [place], [place], [place]) Address [address] [place] [address] Care Team Providers Care Supervisor Twisting Department Name Role Phone Unavailable Primary Care Provider Unavailabl e Social History Tobacco Use Types Packs/Day Years Used Date Smoking Tobacco: Never Assessed Food Insecurity Answer Date Recorded Food run [...] Date Felix rded Speak language other than Palestinian at home Not on file 09/15/2023 Want help with school or training Not on file 09/15/2023 Substance Use Answer Date Recorded Used [...]
--- OUTSIDE RECORDS SUMMARY | 2025-03-10 15:02 | XMS_ITS | Clinical Summary ---
Author Organization [facility] [facility] [employer] ([place], [place], [place], [place]) Address [address] [place] [address] Care Team Providers Care Coronary Care Unit Nurse Name Role Phone Unavailable Primary Care Provider [...] Date Felix rded Speak language other than Bahamian at home Not on file 09/15/2023 Want [...] Breast Cancer Screening 06/03/2016 06/03/2014 COVID-19 VACCINE ( season) 05/05/202407/2021 Falls Risk Screening 09/04/2024 Influenza Vaccine (#1) 2025 Respiratory Syncytial Virus (RSV) Adult or (1 - 1-dose 75+ series) 2032 Shingles Vaccine (Zoster) Completed 07/09/2018, 08/2018
== END 2025-03-10 23:59 | disposition home or self-care (01) ==
LOC: RAD 15:01
PROVIDERS: PCP Internal Medicine Adolescent Medicine; Visit Provider Internal Medicine Adolescent Medicine
DX: R19.8 Other specified symptoms and signs involving the digestive system and abdomen (principal); R06.09 Other forms of dyspnea; R06.2 Wheezing
CPT/HCPCS: 71250

== ENCOUNTER 2025-03-13 12:02 | Outpatient (CLI) | payer MEDICARE, OTHER, SELFPAY ==
--- OUTSIDE RECORDS SUMMARY | 2025-03-13 12:07 | XMS_ITS | Clinical Summary ---
Author Organization [employer] ([place], [place], [place], [place]) Address [address] [place] [address] Care Team Providers Care Interior Design Professor Name Role Phone Unavailable Primary Care Provider [...] Date Felix rded Speak language other than Faroese at home Not on file 09/15/2023 Want [...]
--- OUTSIDE RECORDS SUMMARY | 2025-03-13 12:07 | XMS_ITS | Referral Summary ---
Author Organization [employer] ([place], [place], [place], [place]) Address [address] [place] [address] Care Team Providers Care Warehouse Specialist Name Role Phone Unavailable Primary Care Provider [...] Date Felix rded Speak language other than Gabonese at home Not on file 09/15/2023 Want [...]
== END 2025-03-13 23:59 | disposition home or self-care (01) ==
LOC: RT 12:05
PROVIDERS: PCP Internal Medicine Adolescent Medicine; Visit Provider Internal Medicine Adolescent Medicine
DX: I49.3 Ventricular premature depolarization (principal)
CPT/HCPCS: 93225; 93226

== ENCOUNTER → 2025-04-10 06:41 | Outpatient (CLI) | payer MEDICARE, OTHER, SELFPAY ==
--- OUTSIDE RECORDS SUMMARY | 2025-04-10 06:44 | XMS_ITS | Referral Summary ---
Author Organization [employer] ([place], [place], [place], [place]) Address [address] [place] [address] Care Team Providers Care Process Safety Specialist Name Role Phone Unavailable Primary Care [...] Date Felix rded Speak language other than Lebanese at home Not on file 09/15/2023 Want [...]
--- OUTSIDE RECORDS SUMMARY | 2025-04-10 06:44 | XMS_ITS | Clinical Summary ---
Author Organization [employer] ([place], [place], [place], [place]) Address [address] [place] [address] Care Team Providers Care Java Developer Architect Name Role Phone Unavailable Primary Care Provider [...] Date Felix rded Speak language other than Libyan at home Not on file 09/15/2023 Want [...]
--- OUTSIDE RECORDS SUMMARY | 2025-04-10 06:44 | XMS_ITS | Clinical Summary ---
Author Organization [facility] Address [address] [place] [address] Care Team Providers Care Certified Medical Technician Assistant Name Role Phone Unavailable Primary Care Provider Unavailabl e Social History Tobacco Use Types Packs/Day Years Used Date Smoking Tobacco: Never Assessed Abuse Screen Answer Date Recorded Unsafe at Home or Work/School Not on file Feels Threatened by Someone? Not on file 06/2023 Does Anyone Keep You from Co ntacting Others or Doint Things Outside the Home? Not on file 06/13/2023 Physical Sign of Abuse Present Not on file 1 Housing Stability Answer Date Recorded Current Living Arrangements Not on file 06/04 Potentially Unsafe Housing Conditions Not on tello e 06/13/2023 Family and Community Support Answer Osman e Recorded Help with Day-to-Day Activities Not on file 06/13/2023 Lonely or Isolated Not on file 06/13/2023 Employment Answer Date Recorded Do you want help finding or keeping work or a kapil b? Not on file 06/13/2023 Disabilities Answer Date Recorded Concentrating, Remembering, or Making Decisions Difficulty Not on file 06/13/2023 Doing Errands Independently Difficulty Not on fi le 06/13/2023 Education Answer Date Recorded Help with school or training? Not on file Preferred Language Not on file 06/13/2023 Comments Unknown Sex and Gender Information Value Date Recorded Sex Assigned at Not on file Legal Sex Female 1:45 PM EDT Gender Identity Not on file Sexual Orientation Not on file Plan of Treatment Upcoming Encounters Date Type Department Care Team (Late st Contact Info) Description 05/08/2025 9:45 AM EDT Registration [facility]UL[facility]ICAL [facility] MEDICINE [address] [place] [address] 05/08/2025 10:00 AM EDT Office Visit [facility] PULMONARY & CRITICAL CARE MEDICINE [address] [place] [address] 05/08/2025 10:30 AM EDT Office Visit [facility] PULMONARY [facility] CRITICAL CARE MEDICINE [address] [place] [address] Ba Jewell MD [address] [place] [address] Health Maintenance Due Date Last Done Comments ANNUAL WELLNESS VISIT 1957 DXA SCAN 1957 HEPATITIS C SCREENING 1957 TDAP/TD VACCINES (1 - Tdap) 1976 COLOGUARD 2002 COLON CANCER SCREENING 5 YEAR SIGMOIDOSCOPY 2002 COLONOSCOPY [address]ER SCREENING [address] COLONOGRAPHY 2002 FECAL OCCULT BLOOD TEST 2002 FIT Testing (1 year) 2002 Pneumococcal Vaccine 50+ (1 of 1 - PCV) 2007 ZOSTER VACCINE (1 of 2) 2007 MAMMOGRAM 06/03/2016 06/03/2014 COVID-19 Vaccine (1 - season) 2024 INFLUENZA VACCINE 06/04/2025 Procedures Procedure Name Priority Date/Time Associated Diagnosis Comments MAMMO SCREENING BILATERAL W CAD Routine 06/03/2014 9:08 AM EDT from Last 3 Months or Most Recently Relevant to Health Maintenance Results * MAMMOGRAPHY SCREENING BILATERAL (06/03/2014 9:08 AM EDT) Anatomical Region Laterality Modality Breast Bilateral Mammography 06/03/2014 9:08 AM EDT Narrative 06/10/2014 8:27 AM EDT BILATERAL DIGITAL SCREENING MAMMOGRAM WITH TOMOSYNTHESIS: HISTORY: 59-year-old female with no personal or family history of breast cancer. Routine screening. TECHNIQUE: Low dose full field digital breast tomosynthesis examination was performed with 2-D and 3-D acquisitions. IMAGE COMPARISON: Prior exams most recently [facility]. FINDINGS: There are scattered areas of fibroglandular density bilaterally. There is no suspicious mass, group of calcifications or architectural distortion to suggest malignancy. ASSESSMENT: BI-RADS CATEGORY I, NEGATIVE. MANAGEMENT: Routine screening. The standard false-negative rate of mammography is between 10% and 25%. Complex patterns or increased breast density will markedly elevate the false-negative rate of mammography. iCAD was utilized. A letter, in lay terminology, with the results of this exam will be mailed to the patient. Reading Radiologist- CHACE PARRA Releasing Radiologist- CHACE PARRA Released Date Time- 06/10/14 0934 Regulatory Affairs Spec- Mando us Katia Joy MD IMG MAMMOGRAPHY ORDERABLES F inal Result from Last 3 Months or Most Recently Relevant to Health Maintenance Insurance MEDICARE A & B Member Subscriber Plan / Payer (Ef fective 2022-Present) Name:Lori Ramírez Member ID:[id number] Relation to Subscriber:Self Name:Lori Ramírez Subscriber ID:[id number] Payer ID:[id number] Group ID:Not on file Type:Not on file Address: [facility] [place] [place] [id number] [address]
--- OUTSIDE RECORDS SUMMARY | 2025-04-10 06:44 | XMS_ITS | Patient Health Record ---
Author Organization [facility] Address [address] [place] [address] Care Team Providers Care Computer Repair Technician Name Role Phone Katia Joy Unavailable [phone] Reason For Referral No Information Problems Problem Type SNOMED Code ICD Code Onset Dates Problem Status W/U Status Risk Notes Problem Fam hx-ischem heart disease (Z82.49) Active confirmed Family History of Coronary Heart Disease Plan Of Treatment No Information Medical (General) History Medical History History ICD Code AUB Hypothroidism Obesity High Blood Pressure LEVOTHYROXINE SODIUM 112 MCG ORAL TABLET ADULT ASPIRIN EC LOW STRENGTH 81 MG ORAL TABLET DELAYED RELEASE PREVACID CAPSULE DELAYED RELEASE ZYRTEC ALLERGY 10 MG ORAL CAPSULE LOSARTAN POTASSIUM-HCTZ 100-25 MG ORAL T ABLET ETODOLAC ER 400 MG ORAL TABLET EXTENDED RELEASE 24 HOUR Surgical History Surgery Date(Month/Year) Hysterectomy, gallbladder, D&C x 2
== END ==
LOC: SL 06:42
PROVIDERS: PCP Internal Medicine Adolescent Medicine; Visit Provider Internal Medicine Adolescent Medicine
DX: G47.33 Obstructive sleep apnea (adult) (pediatric) (principal); G47.36 Sleep related hypoventilation in conditions classified elsewhere; I10 Essential (primary) hypertension; E66.9 Obesity, unspecified; G47.10 Hypersomnia, unspecified
CPT/HCPCS: G0399